=== PATIENT | male | born 1990 | race Caucasian/White ===

== ENCOUNTER 2017-02-21 14:29 | Emergency (ER) | payer OTHER ==
[~2017-02-21] VITALS: Ht 177.8 cm; Wt 70.8 kg
[~2017-02-21 14:29] MED LIST: IBUP600T44 PO; INDO-24 PO
[2017-02-21 14:31] VITALS: TEMP 37; Ht 177.8 cm; Wt 70.8 kg
[2017-02-21] MEDS ORDERED: XYLOCAINE 1%/SOD BICARB 20 ML VIAL INFIL ONE (14:45)
[2017-02-21] MEDS ORDERED: CEPH500C2 PO (15:23)
[2017-02-21] MEDS ORDERED: CEPH500C PO (15:26)
[2017-02-21 15:34] VITALS: BP 121/72; PULSE 61; O2SAT 98
--- NOTE | 2017-02-21 18:28 | EMERGENCY ROOM VISIT NOTE ---
ED Visit Note First contact with patient: 14:37 Chief complaint: Right knee laceration HPI: This 26-year-old white male presents for evaluation of a laceration on the lateral aspect of his right knee. The patient was in the [place] today and was using a machete. He states his leg was sticking out a little farther than he expected when he swung the machete. He struck his right knee on the lateral aspect. He sustained a small cut through his pants and created a small laceration on the lateral aspect of the right knee. It is distal to the joint line by approximately 2 cm, and is on the lateral border of his patellar tendon. The laceration is only about 8 mm in length. Bleeding was controlled with pressure. At first he did not think much of it. His knee became more stiff throughout the day and he came here for evaluation. They deny any numbness or tingling. No other complaints. His father accompanies him today. Tetanus is believed to be up-to-date. Pain is 5/10. He denies any swelling of the knee. He has been ambulatory. Supplemental sheet was reviewed and signed. Previous surgeries: None Medical history: Benign Current Medications: None Allergies: NKDA Tetanus: Within 10 years Family History: Unremarkable. Parents are living. Social History: Employed. Lives with his parents. No tobacco use, no EtOH use. REVIEW OF SYSTEM: HEENT: No dizziness, visual problems, hearing loss, or tinnitus. There is no difficulty swallowing and no oral lesions are present. LYMPH: No adenopathy. PULMONARY: No cough, shortness of breath, sputum production or hemoptysis. CARDIOVASCULAR: No chest pain, palpitations, shortness of breath or peripheral edema. GASTROINTESTINAL: No diarrhea, constipation, nausea, vomiting, or abdominal pain. GENITOURINARY: No dysuria, frequency, urgency or nocturia. NEUROLOGIC: No weakness, muscle tenderness, epilepsy or history of neurological problems. MUSCULOSKELETAL: No history of joint tenderness/swelling. No history of arthritis or arthralgias. SKIN: No rashes or lesions. ENDOCRINE: No history of diabetes, thyroid disorders, or abnormal hair growth. Physical Exam: Vitals: Afebrile. Reviewed and filed in patient's chart General: Well-developed, well-nourished, young white male, in no acute distress. Obvious discomfort. He is sitting on the bed. Alert and oriented. Skin: Warm and dry with good turgor. No rashes. No ecchymosis or erythema. The patient is not diaphoretic. No abrasions. The patient has a 8 mm laceration present on the lateral aspect of the right knee, next to the lateral patellar tendon. It is distal to the knee joint. Musculoskeletal: Patient has no intra-articular effusion. Full terminal extension. He has focal discomfort with palpation over the proximal tibia. No pain with palpation over his fibula. He does have some discomfort with palpation over the patellar tendon. No palpable defect. He is able to set his quad and perform a straight leg raise. No pain with palpation over the medial or lateral joint lines. No pain with palpation over the patellar or quadriceps tendon. Flexion to 90. Flexion does cause pain around the laceration site. Neurologic: Gross sensation is intact across the right lower leg by soft touch. Impression: Right lateral knee 8 mm laceration Procedure: Informed oral consent was obtained for repair. Right proximal tibia was prepped with Betadine and draped with a sterile towel. Area was anesthetized using 5 mL 1% plain buffered lidocaine in a direct infiltration. Thorough inspection was performed, including using self-retaining finger retractors. I was able to visualize the peritenon. It does appear to have a small violation. Underlying Tendon appears to be intact without defect. No foreign material was visualized. Wound was irrigated copiously using Betadine diluted with normal sterile saline under jet spray lavage. Wound was closed using 4-0 nylon in 2 simple closures. Good wound edge approximation was achieved. Hemostasis was achieved. Plan: Patient was educated regarding today's findings. Conservative care measures were discussed. Violation of the peritenon was discussed. He was reassured that I do not suspect joint violation. Regardless, I do think he requires antibiotic prophylaxis. Perception was provided for Keflex 500 mg 4 times a day 7 days. Cleanse the wound daily with soap and water and reapply a small amount of bacitracin. Ice and elevate intermittently as needed for discomfort. Tylenol and ibuprofen every 6 hours as needed for pain. Wound care handout was provided. Sutures out in 12 days. He may shower. Avoid soaking or swimming for two weeks. Return to the ER for any acute changes or signs of infection. These were discussed at length. He may also follow-up with orthopedics if the pain is increasing or redness develops. Problem List Surgical Problems: (1) H/O wisdom tooth extraction Status: Chronic Current/Historical Medications Scheduled Cephalexin Monohydrate (Keflex), 500 MG PO QID Scheduled PRN Ibuprofen (Motrin), 600 MG PO Q6H PRN for Pain Allergies Coded Allergies: POLLEN (Verified Allergy, Intermediate, ITCHY EYES, SNEEZING, RUNNY NOSE, 02/21/17) Vital Signs Date Time Temp Pulse Resp B/P (MAP) Pulse Ox O2 Delivery O2 Flow Rate FiO2 02/21/17 15:34 61 18 121/72 98 02/21/17 14:31 37.0 78 18 136/77 99 Room Air Departure Information Impression Primary Impression: Laceration of knee, right, with tendon involvement Dispostion Home / Self-Care Condition GOOD Prescriptions Cephalexin Monohydrate (Keflex) 500 Mg Cap 500 MG PO QID, #28 CAP Prov: Tyrese Dykes,P.A. 02/21/17 Forms HOME CARE DOCUMENTATION FORM, MOTRIN USE, TYLENOL USE, IMPORTANT VISIT INFORMATION Patient Instructions My [facility] Additional Instructions Tylenol and Motrin every 6 hours as needed for discomfort Keflex one pill 4 times a day 7 days Ice and elevate frequently 72 hours, then use moist heat Gentle motion daily Follow-up with your orthopedist or return to the ED for any acute worsening of symptoms, including redness, increasing pain, or increasing swelling. Cleanse the wound daily with soap and water Avoid swimming or soaking for 2 weeks you may shower and wash your leg Sutures out in 12 days
== END 2017-02-21 15:36 | disposition home or self-care (01) ==
LOC: C.EDB 14:30 → C.EDD 15:36
DX: S81.011A Laceration without foreign body, right knee, initial encounter (principal); W45.8XXA Other foreign body or object entering through skin, initial encounter; Y92.821 Forest as the place of occurrence of the external cause